=== PATIENT | female | born 1975 | race Two or more races ===

== ENCOUNTER → 2021-11-04 | Outpatient (CLI) | payer OTHER | LOC: NM 08-29 08:00 | DX: Z12.31 Encounter for screening mammogram for malignant neoplasm of breast (principal); N93.9 Abnormal uterine and vaginal bleeding, unspecified; R07.9 Chest pain, unspecified | CPT/HCPCS: 76830; 77063; 77067; 78452; 93017; A9502 ==

== ENCOUNTER → 2021-12-12 | Outpatient (CLI) | payer OTHER | LOC: US 12-09 15:00 | DX: R92.8 Other abnormal and inconclusive findings on diagnostic imaging of breast (principal); N85.8 Other specified noninflammatory disorders of uterus | CPT/HCPCS: 76641; 76830 ==

== ENCOUNTER 2021-12-24 05:50 | Emergency (ER) | payer OTHER ==
[2021-12-24 07:57] LABS: HEMOGLOBIN 14.2 gm/dl (12.3-15.3); RED BLOOD COUNT 4.93 M/UL (4.00-5.10)
[2021-12-24 08:18] LABS: BUN/CREATININE RATIO 16 (0-10)
[2021-12-24] MEDS ORDERED: ENDOCET 5-3251 EACH PO (09:43)
[2021-12-24] MEDS ORDERED: IBUPROFEN800 MG PO (09:46)
[2021-12-24] MEDS ORDERED: COLACE 100MG C100 MG PO (09:46)
[2021-12-24] MEDS ORDERED: CEPHALEXIN500 M1 PO (09:47)
== END 2021-12-24 10:10 | disposition home or self-care (01) ==
LOC: ER1 05:50
PROVIDERS: Physician Assistant
DX: K91.840 Postprocedural hemorrhage of a digestive system organ or structure following a digestive system procedure (principal); R30.0 Dysuria; E11.9 Type 2 diabetes mellitus without complications; E78.5 Hyperlipidemia, unspecified; I10 Essential (primary) hypertension
CPT/HCPCS: 80053; 81001; 84703; 85025; 87086; 96374; 99283; J1885